=== PATIENT | female | born 1965 | race Two or more races ===

== ENCOUNTER 2016-08-19 17:42 | Emergency (ER) | payer MEDICAID ==
[~2016-08-19] VITALS: Ht 175.3 cm; Wt 56.7 kg
[2016-08-19 19:00] VITALS: BP 136/86
[2016-08-19 19:48] LABS: Basophils # (auto) 0 uL; Basophils % (auto) 0.3 % (0.0-2.0); Eosinophils # (auto) 0 uL; Eosinophils % (auto) 0.4 % (0.0-7.0); Hematocrit 39.2 % (36.0-46.0); Lymphocytes # (auto) 1.6 uL; Lymphocytes % (auto) 25.1 % (10.0-50.0); Mean Corpuscular Hemoglobin 28.5 pg (28.0-32.0); Mean Corpuscular Hgb Conc. 33.2 g/dL (32.0-36.0); Mean Corpuscular Volume 85.8 fL (80.0-100.0); Mean Platelet Volume 7.5 fL (7.4-10.4); Monocytes # (auto) 0.3 uL; Monocytes % (auto) 4.6 % (0.0-12.0); Neutrophils # (auto) 4.6 uL; Neutrophils % (auto) 69.6 % (37.0-80.0); Platelet Count (auto) 419 10^3/uL (140-450); White Blood Cell 6.6 10^3/uL (4.4-10.8)
[2016-08-19 20:01] LABS: Albumin 3.4 g/dL (3.4-5.0); Calcium 8.7 mg/dL (8.5-10.1); Potassium 3.8 mmol/L (3.5-5.1)
[2016-08-19 20:03] LABS: BUN/Creatinine Ratio 20.3
[2016-08-19 20:18] LABS: Bilirubin, Total 0.4 mg/dL (0.2-1.0); Total Protein 8.2 g/dL (6.4-8.2)
== END 2016-08-19 19:34 | disposition home or self-care (01) ==
LOC: ER 17:48
DX: F41.9 Anxiety disorder, unspecified (principal); F12.10 Cannabis abuse, uncomplicated; F11.10 Opioid abuse, uncomplicated; Z02.89 Encounter for other administrative examinations
CPT/HCPCS: 36415; 80053; 85025